=== PATIENT | female | born 1945 | race Caucasian/White ===

== ENCOUNTER → 2016-08-19 | Outpatient (CLI) | payer MEDICARE, BC | END | disposition home or self-care (01) | LOC: GMAL 10:50 | PROVIDERS: ATTEND Family Medicine | DX: E78.4 Other hyperlipidemia (principal); R53.83 Other fatigue; E55.9 Vitamin D deficiency, unspecified; D51.3 Other dietary vitamin B12 deficiency anemia ==

== ENCOUNTER → 2017-09-23 | Outpatient (CLI) | payer MEDICARE, BC | LOC: GMAL 17:13 | PROVIDERS: ATTEND Family Medicine | DX: S60.461A Insect bite (nonvenomous) of left index finger, initial encounter (principal) ==

== ENCOUNTER → 2019-07-07 | Outpatient (CLI) | payer MEDICARE, BC | LOC: GMAL 10:32 | PROVIDERS: ATTEND Family Medicine | DX: D51.3 Other dietary vitamin B12 deficiency anemia (principal); R53.83 Other fatigue; E55.9 Vitamin D deficiency, unspecified; I10 Essential (primary) hypertension; E78.49 Other hyperlipidemia ==

== ENCOUNTER → 2020-02-14 | Outpatient (CLI) | payer MEDICARE, BC | LOC: GMAL 10:19 | PROVIDERS: ATTEND Family Medicine | DX: E55.9 Vitamin D deficiency, unspecified (principal); E78.49 Other hyperlipidemia; I10 Essential (primary) hypertension ==

== ENCOUNTER 2020-03-25 20:08 | Emergency (ER) | payer MEDICARE, BC ==
[2020-03-25] MEDS ORDERED: ASPIRIN TABLET 325 MG TAB PO ONE (20:18)
[2020-03-25] MEDS ORDERED: SODIUM CHLORIDE 0.9% (FLUSH) 10 ML SYG IV PRN (20:18)
--- NOTE | 2020-03-25 20:49 | ED.PDOC ---
History of Present Illness - General Chief Complaint: General Stated Complaint: "trouble thinking", dizziness onset 1829 Time Seen by Provider: 03/25/20 20:12 Source: patient, RN notes reviewed, Vital Signs reviewed, family Exam Limitations: no limitations - History of Present Illness Initial Comments: This is a 74-year-old female with no significant past medical history presenting to the emergency department with transient episode of "difficulty concentrating". According to the patient, around 6:30 PM tonight she began "staring off into space, completely blanked out." Her family had to walk up to her and shake her to get her attention. There was no seizure activity noted. There were no speech changes, no weakness. Patient states her symptoms improved after a few minutes, family tried to get her to come to the emergency room, but she decided to take a walk. She had no difficulty walking or ataxia. She says she did get a little bit dizzy while walking, but no chest pain or shortness of breath. She does not take any blood thinners. Allergies/Adverse Reactions: Allergies Codeine Allergy (Verified 03/25/20 20:24) Home Medications: Ambulatory Orders Citalopram Hydrobromide [Celexa] 10 mg PO DAILY 03/25/20 cloNAZepam [KlonoPIN] 0.25 - 0.5 mg PO Q8H PRN #10 tab 03/25/20 Review of Systems - Review of Systems Constitutional: Denies: chills, fever EENTM: Denies: tearing, ear pain, nose pain, nose congestion, throat pain Respiratory: Denies: cough, short of breath, wheezing Cardiology: Denies: chest pain, edema, palpitations, syncope Gastrointestinal/Abdominal: Denies: abdominal pain, diarrhea, nausea, vomiting Genitourinary: Denies: dysuria, hematuria Musculoskeletal: Denies: back pain, joint swelling, neck pain Skin: Denies: lesions, lumps Neurological: States: other - Transient confusion. Denies: depressed, emotional problems, headache, paresthesia, seizure, tingling, weakness Hematologic/Lymphatic: Denies: blood clots, easy bleeding, swollen glands Past Medical History (General) - Patient Medical History Hx Seizures: No Hx Stroke: No Hx Dementia: No Hx Asthma: No Hx of COPD: No Hx Cardiac Disorders: No Hx Congestive Heart Failure: No Hx Pacemaker: No Hx Hypertension: No Hx Thyroid Disease: No Hx Diabetes: No Hx Gastroesophageal Reflux: No Hx Renal Disease: No Hx Cancer: Yes - breast left masectomy Hx of HIV: No Hx Hepatitis C: No Hx MRSA: No - Vaccination History Hx Tetanus, Diphtheria Vaccination: No Hx Influenza Vaccination: No Hx Pneumococcal Vaccination: No - Social History Hx Alcohol Use: No Family Medical History - Family History Mother Family History: Unknown Physical Exam - Physical Exam General Appearance: Alert, Comfortable Eye Exam: bilateral normal Ears, Nose, Throat: hearing grossly normal Neck: full range of motion, supple Respiratory: chest non-tender, lungs clear, normal breath sounds, no respiratory distress, no accessory muscle use Cardiovascular/Chest: normal peripheral pulses, regular rate, rhythm, no edema, no gallop, no JVD, no murmur Gastrointestinal/Abdominal: non tender, soft Back Exam: normal inspection, no vertebral tenderness Extremity: normal range of motion, non-tender, normal inspection 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 GCS is 15. Finger-nose, heel mccoy normal. No dysmetria. Speech is clear. NIH stroke scale 0 Skin Exam: normal color, warm/dry Progress - Progress Progress: 03/25/20 20:25 NIH stroke scale is 0. tPA is not indicated due to complete resolution of symptoms and NIH stroke scale of 0. 03/25/20 23:34 Discussed lab/CTA results. Her neuro exam remains nonfocal. She states "I just feel like I am in a fog." I discussed admission versus discharge home, patient is fairly adamant that she would like to go home. I recommended she follow-up with her PCP in 1 to 2 days for recheck. Strict warnings given to return the emergency room for worsening changes in mental status, weakness/numbness/tingling, facial droop, severe headaches, fever, or other concerns DDX: CVA, carotid dissection, LVO, medication side effect MDM: Patient presenting with transient altered mental status without any speech change, or focal weakness. Low suspicion for stroke. CT head/CTA head/neck are both normal. Labs today are reassuring. Her neuro exam is nonfocal, speech is clear. She reports that "her head feels like it is in a fog", but my suspicion for stroke remains low. Patient refused admission, I recommended she follow-up with her PCP in 1 to 2 days for recheck. Recommend she start daily aspirin for now until she follows up with PCP. Strict warnings given to return for worsening. Hai Montero DO [facility] #[id number] - Results/Orders Results/Orders: EXAM: CT head without contrast CLINICAL INDICATION: Dysphagia COMPARISON: There is no previous study for comparison. TECHNIQUE: The CT scan was done using contiguous axial 2.5 mm sections through the brain. This exam was performed according to our departmental dose- optimization program, which includes automated exposure control, adjustment of the mA and/or kV according to patient size and/or use of iterative reconstruction technique. FINDINGS: There is no midline shift, mass effect, or extraaxial fluid collection. There is no evidence of acute intracranial hemorrhage, mass lesion, or cerebral edema. The ventricles and cortical sulci are normal for the patient's age. Bone window images reveal no evidence of a skull fracture. IMPRESSION: No evidence of an acute intracranial process. Electronically signed by: Parviz Carr MD 03/25/2020 8:53 PM CDT EXAM: Chest,1 View CLINICAL INDICATION: Stroke like symptoms COMPARISON: There is no previous study for comparison. FINDINGS: A single view of the chest was obtained. The heart size is normal. The pulmonary vascularity is unremarkable. The lungs are clear. There is no con solidation, infiltrate, pleural effusion, or pneumothorax. IMPRESSION: No evidence of active pulmonary disease. Electronically signed by: Parviz Carr MD 03/25/2020 8:[address] ANGIOGRAPHY OF THE HEAD AND NECK HISTORY: CVA. COMPARISON: None. TECHNIQUE: CT angiogram of the head and neck was performed with contrast. 3D reformatted reconstructions were performed on an independent workstation. This exam was performed according to our departmental dose-optimization program, which includes automated exposure control, adjustment of the mA and/or kV according to patient size and/or use of iterative reconstruction technique. FINDINGS: NECK: The aortic arch origin, brachiocephalic, left common carotid, and left subclavian arteries are patent. The bilateral vertebral artery origins are also patent. The bilateral common carotid arteries, carotid bifurcations, cervical internal/external carotid, and vertebral arteries are patent. HEAD: There is patent flow through anterior circulation, posterior circulation, and distal intracranial vasculature. There is patent flow through a complete [id number] with a patent anterior communicating artery and bilateral posterior communicating arteries. IMPRESSION: Unremarkable CT angiogram of the head and neck. Electronically signed by: Joe Philip MD 03/25/2020 11:07 PM CDT 03/25/20 20:18 IV Care:Saline Lock per Protoc QSHIFT Telemetry .ONCE Sodium Chloride 0.9% (Flush) [Saline Flush Syringe] 10 ml IV PRN PRN 03/25/20 20:30 EKG STAT Laboratory Results - last 24 hr 03/25/20 03/25/20 03/25/20 21:00 21:00 21:00 WBC 8.0 RBC 4.28 Hgb 12.8 Hct 37.7 MCV 88.0 MCH 29.9 MCHC 34.0 RDW 13.8 Plt Count 237 MPV 9.5 Absolute Neuts (auto) 5.60 Absolute Lymphs (auto) 1.40 Absolute Monos (auto) 0.70 Absolute Eos (auto) 0.20 Absolute Basos (auto) 0.00 Neutrophils % 70.0 Lymphocytes % 18.1 L Monocytes % 8.4 Eosinophils % 2.9 Basophils % 0.6 PT 9.3 INR < 1.00 PTT (SP) 23.0 Sodium 140 Potassium 3.9 Chloride 105 Carbon Dioxide 24 Anion Gap 14.9 BUN 18 Creatinine 1.02 BUN/Creatinine Ratio 17.6 POC Glucose Random Glucose 116 H Serum Osmolality 282.3 Calcium 9.1 Total Bilirubin 0.6 AST 27 ALT 23 Alkaline Phosphatase 58 Creatine Kinase 114 CK-MB (CK-2) 2.7 CK-MB (CK-2) % Not Reportable Troponin I < 0.02 Serum Total Protein 7.2 Albumin 4.1 Globulin 3.1 Albumin/Globulin Ratio 1.3 Urine Color Urine Appearance Urine pH Ur Specific [place] Urine Protein Urine Glucose (UA) Urine Ketones Urine Blood Urine Nitrite Urine Bilirubin Urine Urobilinogen Ur Leukocyte Esterase Urine RBC Urine WBC Ur Epithelial Cells Urine Bacteria Urine Mucus 03/25/20 03/25/20 21:00 22:30 WBC RBC Hgb Hct MCV MCH MCHC RDW Plt Count MPV Absolute Neuts (auto) Absolute Lymphs (auto) Absolute Monos (auto) Absolute Eos (auto) Absolute Basos (auto) Neutrophils % Lymphocytes % Monocytes % Eosinophils % Basophils % PT INR PTT (SP) Sodium Potassium Chloride Carbon Dioxide Anion Gap BUN Creatinine BUN/Creatinine Ratio POC Glucose 96 Random Glucose Serum Osmolality Calcium Total Bilirubin AST ALT Alkaline Phosphatase Creatine Kinase CK-MB (CK-2) CK-MB (CK-2) % Troponin I Serum Total Protein Albumin Globulin Albumin/Globulin Ratio Urine Color Yellow Urine Appearance Clear Urine pH 5.0 Ur Specific [place] >= 1.030 Urine Protein Negative Urine Glucose (UA) Negative Urine Ketones Trace Urine Blood Negative Urine Nitrite Negative Urine Bilirubin Negative Urine Urobilinogen 0.2 Ur Leukocyte Esterase Negative Urine RBC 0 Urine WBC 0 Ur Epithelial Cells 1-3 Urine Bacteria Rare Urine Mucus Trace Departure - Departure Clinical Impression: Transient alteration of awareness Time of Disposition: 23:54 Disposition: Discharge to Home or Self Care Condition: Good Departure Forms: ED Discharge - Pt. Copy, Patient Portal Self Enrollment Instructions: Altered Mental Status (DC) Referrals: Baldomero Adame III, MD [Primary Care Provider] - 1-2 Days Prescriptions: cloNAZepam [KlonoPIN] 0.25 - 0.5 mg PO Q8H PRN #10 tab PRN Reason: Anxiety Home Medications: Ambulatory Orders Citalopram Hydrobromide [Celexa] 10 mg PO DAILY 03/25/20 cloNAZepam [KlonoPIN] 0.25 - 0.5 mg PO Q8H PRN #10 tab 03/25/20 Additional Instructions: Start taking an aspirin 325 mg daily. Follow-up with your primary doctor in 1 to 2 days for recheck. Return to the emergency room immediately for any worsening changes in mental status, weakness, numbness, or any other concerns.
--- NOTE | 2020-03-25 20:55 | RAD ---
EXAM: Chest,1 View CLINICAL INDICATION: Stroke like symptoms COMPARISON: There is no previous study for comparison. FINDINGS: A single view of the chest was obtained. The heart size is normal. The pulmonary vascularity is unremarkable. The lungs are clear. There is no consolidation, infiltrate, pleural effusion, or pneumothorax. IMPRESSION: No evidence of active pulmonary disease. Electronically signed by: Parviz Carr MD 03/25/2020 8:54 PM CDT
--- NOTE | 2020-03-25 20:55 | CT ---
EXAM: CT head without contrast CLINICAL INDICATION: Dysphagia COMPARISON: There is no previous study for comparison. TECHNIQUE: The CT scan was done using contiguous axial 2.5 mm sections through the brain. This exam was performed according to our departmental dose-optimization program, which includes automated exposure control, adjustment of the mA and/or kV according to patient size and/or use of iterative reconstruction technique. FINDINGS: There is no midline shift, mass effect, or extraaxial fluid collection. There is no evidence of acute intracranial hemorrhage, mass lesion, or cerebral edema. The ventricles and cortical sulci are normal for the patient's age. Bone window images reveal no evidence of a skull fracture. IMPRESSION: No evidence of an acute intracranial process. Electronically signed by: Parviz Carr MD 03/25/2020 8:53 PM CDT
--- NOTE | 2020-03-25 23:09 | CT ---
CT ANGIOGRAPHY OF THE HEAD AND NECK HISTORY: CVA. COMPARISON: None. TECHNIQUE: CT angiogram of the head and neck was performed with contrast. 3D reformatted reconstructions were performed on an independent workstation. This exam was performed according to our departmental dose-optimization program, which includes automated exposure control, adjustment of the mA and/or kV according to patient size and/or use of iterative reconstruction technique. FINDINGS: NECK: The aortic arch origin, brachiocephalic, left common carotid, and left subclavian arteries are patent. The bilateral vertebral artery origins are also patent. The bilateral common carotid arteries, carotid bifurcations, cervical internal/external carotid, and vertebral arteries are patent. HEAD: There is patent flow through anterior circulation, posterior circulation, and distal intracranial vasculature. There is patent flow through a complete [id number] with a patent anterior communicating artery and bilateral posterior communicating arteries. IMPRESSION: Unremarkable CT angiogram of the head and neck. Electronically signed by: Joe Philip MD 03/25/2020 11:07 PM CDT
--- NOTE | 2020-03-25 23:09 | CT ---
CT ANGIOGRAPHY OF THE HEAD AND NECK HISTORY: CVA. COMPARISON: None. TECHNIQUE: CT angiogram of the head and neck was performed with contrast. 3D reformatted reconstructions were performed on an independent workstation. This exam was performed according to our departmental dose-optimization program, which includes automated exposure control, adjustment of the mA and/or kV according to patient size and/or use of iterative reconstruction technique. FINDINGS: NECK: The aortic arch origin, brachiocephalic, left common carotid, and left subclavian arteries are patent. The bilateral vertebral artery origins are also patent. The bilateral common carotid arteries, carotid bifurcations, cervical internal/external carotid, and vertebral arteries are patent. HEAD: There is patent flow through anterior circulation, posterior circulation, and distal intracranial vasculature. There is patent flow through a complete [id number] with a patent anterior communicating artery and bilateral posterior communicating arteries. IMPRESSION: Unremarkable CT angiogram of the head and neck. Electronically signed by: Joe Philip MD 03/25/2020 11:07 PM CDT
[2020-03-25 23:58] VITALS: TEMP 98
[2020-03-26] VITALS: BP 173/89; O2SAT 94
== END 2020-03-26 00:12 | disposition home or self-care (01) ==
LOC: ER 20:08
DX: R40.4 Transient alteration of awareness (principal); R42 Dizziness and giddiness; Z88.5 Allergy status to narcotic agent; Z85.3 Personal history of malignant neoplasm of breast